=== PATIENT | female | born 1995 | race Caucasian/White ===

== ENCOUNTER 2016-11-08 09:01 | Emergency (ER) | payer BC, MEDICAID ==
[~2016-11-08] VITALS: Ht 162.6 cm; Wt 74.0 kg
[2016-11-08] MEDS ORDERED: MEPERIDINE 50 MG/ML (DEMEROL) SYRINGE IV ONE (09:50)
[2016-11-08] MEDS ORDERED: ONDANSETRON 2 MG/ML (Z0FRAN) 2 ML VIAL IV ONE (09:50)
[2016-11-08] MEDS ORDERED: NS IV 500 ML 500 ML IV SCH (09:50)
[2016-11-08 09:57] LABS: BASOPHILS % (AUTO) 0 % (0-2); EOSINOPHILS # (AUTO) 0.1 10^3uL; EOSINOPHILS % (AUTO) 1 % (0-4); LYMPHOCYTES # (AUTO) 2.1 X10^3; MEAN CORPUSCULAR HEMOGLOBIN 30.8 PG (26.0-34.0); MEAN CORPUSCULAR HGB CONC 34.6 g/dL (31.0-37.0); MEAN CORPUSCULAR VOLUME 89 FL (80-100); MEAN PLATELET VOLUME 10.9 FL (6.0-9.5); MONOCYTES # (AUTO) 0.7 X10^3; MONOCYTES % (AUTO) 7 % (3-11); NEUTROPHILS # (AUTO) 7.6 X10^3; NEUTROPHILS % (AUTO) 72 % (51-67); PLATELET COUNT 207 10^3uL (150-450); WHITE BLOOD COUNT 10.63 10^3uL (4.0-11.0)
[2016-11-08 10:02] LABS: ALBUMIN 3.6 g/dL (3.4-5.0); CALCULATED IONIZED CALCIUM 4.1 mg/dL (3.8-4.6)
[2016-11-08] MEDS ORDERED: MEPERIDINE 25 MG/ML (DEMEROL) SYRINGE IV ONE (11:10)
[2016-11-08 12:45] VITALS: BP 93/50
== END 2016-11-08 12:46 | disposition home or self-care (01) ==
LOC: ED 09:05
DX: K80.50 Calculus of bile duct without cholangitis or cholecystitis without obstruction (principal)
CPT/HCPCS: 36415; 80053; 83690; 85025; 96374; 96375; 96376; 99284; J2175; J2405; J7040; 99283

== ENCOUNTER 2016-11-26 18:40 | Emergency (ER) | payer BC, MEDICAID ==
[~2016-11-26] VITALS: Ht 162.6 cm; Wt 75.9 kg
--- NOTE | 2016-11-26 18:54 | NUR ---
IS 39 WEEKS PREG. DUE TO THIS SHE WENT UP TO OB FOR EVAL. IF CLEARED WILL RETURN TO ER TO SEE
--- NOTE | 2016-11-26 19:21 | NUR ---
RETURNED FROM OB TO BE SEEN BY ED DOCTOR HAS BEEN CLEARED BY OB
[2016-11-26] MEDS ORDERED: ONDANSETRON 2 MG/ML (Z0FRAN) 2 ML VIAL IV ONE (19:45)
[2016-11-26] MEDS ORDERED: HYDROmorphone 1 MG/ML (DILAUDID) SYRINGE IV ONE (19:45)
[2016-11-26] MEDS ORDERED: SODIUM CHLORIDE FLUSH 3 ML SYR IV ONE (20:00)
[2016-11-26 20:02] LABS: BASOPHILS % (AUTO) 0 % (0-2); EOSINOPHILS # (AUTO) 0.2 10^3uL; EOSINOPHILS % (AUTO) 2 % (0-4); LYMPHOCYTES # (AUTO) 1.8 X10^3; MEAN CORPUSCULAR HEMOGLOBIN 30.9 PG (26.0-34.0); MEAN CORPUSCULAR HGB CONC 34.9 g/dL (31.0-37.0); MEAN CORPUSCULAR VOLUME 88 FL (80-100); MONOCYTES # (AUTO) 0.8 X10^3; MONOCYTES % (AUTO) 8 % (3-11); NEUTROPHILS # (AUTO) 7.5 X10^3; NEUTROPHILS % (AUTO) 72 % (51-67); PLATELET COUNT 197 10^3uL (150-450); WHITE BLOOD COUNT 10.45 10^3uL (4.0-11.0)
[2016-11-26 20:08] LABS: ALBUMIN 3.5 g/dL (3.4-5.0); ANION GAP 14.3 MEQ/L (3-15); TOTAL PROTEIN 6.7 g/dL (6.4-8.5)
[2016-11-26] MEDS: SODIUM CHLORIDE FLUSH 10 ML SYR IV PRN ×2 (20:12→20:15)
[2016-11-26 21:33] VITALS: BP 87/62
== END 2016-11-26 22:02 | disposition home or self-care (01) ==
LOC: ED 19:25
DX: O26.613 Liver and biliary tract disorders in pregnancy, third trimester (principal)
CPT/HCPCS: 36415; 80053; 83690; 85025; 96361; 96374; 96375; 99201; 99283; J1170; J2405; J7030; 99282

== ENCOUNTER 2016-12-01 05:35 | Inpatient (IN) | payer BC, MEDICAID ==
[2016-12-01] VITALS (27 sets, daily range): BP systolic 101–130; BP diastolic 57–78
[~2016-12-01] VITALS: Ht 162.6 cm; Wt 75.9 kg
[2016-12-01] MEDS ORDERED: CALCIUM CARBONATE CHEWABLE 300 MG (TUMS) TABLET PO PRN (05:45)
[2016-12-01] MEDS ORDERED: MISOPROSTOL 25 MCG (CYTOTEC) TABLET PV SCH (05:45)
[2016-12-01] MEDS ORDERED: SODIUM CHLORIDE FLUSH 10 ML SYR IV PRN (05:45)
[2016-12-01 06:15] LABS: MEAN CORPUSCULAR HEMOGLOBIN 30.8 PG (26.0-34.0); MEAN CORPUSCULAR HGB CONC 35.2 g/dL (31.0-37.0); MEAN PLATELET VOLUME 11.1 FL (6.0-9.5); WHITE BLOOD COUNT 9.04 10^3uL (4.0-11.0)
[2016-12-01] MEDS ORDERED: MISOPROSTOL 50 MCG PV ONE (09:40)
[2016-12-01] MEDS ORDERED: ROPIVACAINE 1% 10 MG/ML (NAROPIN) 20 ML AMPUL ONE (14:21)
[2016-12-01 15:43] LABS: BILIRUBIN,URINE Negative (Negative); CLARITY,URINE Clear; COLOR,URINE Yellow; GLUCOSE, URINE (UA) Negative (Negative); LEUKOCYTE ESTERASE ,URINE Negative (Negative); UROBILINOGEN,URINE 0.2 mg/dL (0.2-1.0)
[2016-12-01 15:59] LABS: URINE CENTRIFUGED VOLUME 12 mL
[2016-12-01] MEDS: OXYTOCIN INJ 20 UNIT in NS 1000ml 1,000 ML IV PRN (20:11)
[2016-12-02] VITALS (11 sets, daily range): BP systolic 105–131; BP diastolic 50–71
[2016-12-02] MEDS ORDERED: LANOLIN OINTMENT 28 GM TUBE TOP PRN (01:10)
[2016-12-02] MEDS ORDERED: oxyCODONE/ACETAMINOPHEN 5MG-325 MG (PERCOCET) TABLET PO PRN (01:10)
[2016-12-02 02:18] LABS: MEAN CORPUSCULAR HGB CONC 34.8 g/dL (31.0-37.0); MEAN CORPUSCULAR VOLUME 89 FL (80-100); PLATELET COUNT 187 10^3uL (150-450)
[2016-12-02 02:26] LABS: BAND NEUTROPHILS % 11 % (0-6); EOSINOPHILS % 1 % (0-4); LYMPHOCYTES # 0.8 #; MONOCYTES # 1.2 #; MONOCYTES % 6 % (3-11); RBC MORPH NORMAL (NORMAL); SEGMENTED NEUTROPHILS % 78 % (51-67); TOTAL CELLS COUNTED 100
[2016-12-02] MEDS: OXYTOCIN INJ 20 UNIT in NS 1000ml 1,000 ML IV PRN (02:36)
[2016-12-02 03:27] LABS: INFLUENZA VIRUS TYPE A ANTIBOD Negative (NEGATIVE); INFLUENZA VIRUS TYPE B ANTIBOD Negative (NEGATIVE)
[2016-12-02] MEDS ORDERED: ACETAMINOPHEN 500 MG TAB (TYLENOL) PO PRN (03:35)
[2016-12-02] MEDS ORDERED: AMOXICILLIN/CLAVULANATE 875MG-125MG (AUGMENTIN) TABLET PO SCH (03:35)
[2016-12-02] MEDS: DOCUSATE SODIUM 100 MG (COLACE) CAP PO SCH ×3 (04:09→21:00)
[2016-12-02] MEDS ORDERED: METHYLERGONOVINE 0.2 MG/ML (METHERGINE) AMP IM ONE (06:20)
[2016-12-02] MEDS: NAPROXEN 250 MG (NAPROSYN) TABLET PO PRN (08:17)
--- NOTE | 2016-12-02 10:02 | NUR ---
0800-Ruth Jones'juan. Pericare completed. Pt was incontinent of small loose BM. Transferred pt to post room 224 via wheelchair. Pt tolerated fair. Pt rates pain a "6". 0815-Anaprox 2 tabs PO given for pain. Breakfast tray given, pt takes bites but states she isn't very hungry. 0845-Pt requests to sleep, lights turned off. 0920-Vitals taken. Assessment completed. Pt rates pain a "2" now. 1000-Pt's call light goes off, pt states "I had an accident". Pt incontinent of moderate amt loose stool. Pt assisted to bathroom. Linens changed and pericare completed. Ice pack applied. Pt states pain remains a "2-3". Assisted back to bed. Pt remains sleepy. at bedside.
[2016-12-02] MEDS: AMOXICILLIN/CLAVULANATE 875MG-125MG (AUGMENTIN) TABLET PO SCH (12:00)
[2016-12-03] MEDS: AMOXICILLIN/CLAVULANATE 875MG-125MG (AUGMENTIN) TABLET PO SCH ×2 (00:10→10:38)
[2016-12-03 06:29] LABS: MEAN CORPUSCULAR HEMOGLOBIN 30.6 PG (26.0-34.0); MEAN CORPUSCULAR HGB CONC 34.4 g/dL (31.0-37.0); MEAN CORPUSCULAR VOLUME 89 FL (80-100); MEAN PLATELET VOLUME 10.6 FL (6.0-9.5); PLATELET COUNT 176 10^3uL (150-450)
[2016-12-03 07:35] LABS: ANISOCYTOSIS SLIGHT; BAND NEUTROPHILS % 0 % (0-6); EOSINOPHILS % 0 % (0-4); LYMPHOCYTES # 2.6 #; MONOCYTES # 0.4 #; MONOCYTES % 3 % (3-11); RBC MORPH SEE REFERENCE (NORMAL); SEGMENTED NEUTROPHILS % 78 % (51-67); TOTAL CELLS COUNTED 100
[2016-12-03] MEDS: DOCUSATE SODIUM 100 MG (COLACE) CAP PO SCH (09:00)
[2016-12-03 10:30] VITALS: BP 108/64
[2016-12-03] MEDS: NAPROXEN 250 MG (NAPROSYN) TABLET PO PRN (10:38)
--- NOTE | 2016-12-03 14:05 | NUR ---
pt discharged in good condition. Discharge teaching/instructions reviewed with patient, who denies questions at this time. Advised her to call any time in the future should she have questions. Her is not discharged at this time, so Jaida will stay with .
== END 2016-12-03 16:05 | disposition home or self-care (01) | DRG 774 ==
LOC: OB 05:35 → UNDOADMOB 05:35 → UNDOADMIN 05:35 → OBSVTOIN 05:35 → INTOOBSV 05:35 → EDSTATUS 09:10 → OB 12-02 12:37 → UNDODISIN 12-03 16:05
PROVIDERS: ADMIT Family Medicine; ATTEND Family Medicine
PROC: 3E0P7GC Introduction of Other Therapeutic Substance into Female Reproductive, Via Natural or Artificial Opening (ICD-10-PCS; principal; 2016-12-01)
PROC: 10D07Z6 Extraction of Products of Conception, Vacuum, Via Natural or Artificial Opening (ICD-10-PCS; 2016-12-01)
PROC: 0DQR0ZZ Repair Anal Sphincter, Open Approach (ICD-10-PCS; 2016-12-01)
DX: O26.613 Liver and biliary tract disorders in pregnancy, third trimester (principal); O72.1 Other immediate postpartum hemorrhage; O70.20 Third degree perineal laceration during delivery, unspecified; O86.4 Pyrexia of unknown origin following delivery; K80.70 Calculus of gallbladder and bile duct without cholecystitis without obstruction; O99.013 Anemia complicating pregnancy, third trimester; D64.9 Anemia, unspecified; Z3A.39 39 weeks gestation of pregnancy; O26.86 Pruritic urticarial papules and plaques of pregnancy (PUPPP); O75.81 Maternal exhaustion complicating labor and delivery; O66.0 Obstructed labor due to shoulder dystocia; Z37.0 Single live birth
CPT/HCPCS: 36415; 81003; 81015; 85007; 85025; 85027; 86850; 86900; 86901; 87502

== ENCOUNTER 2016-12-09 10:18 | Emergency (ER) | payer BC, MEDICAID ==
[~2016-12-09] VITALS: Ht 162.6 cm; Wt 63.7 kg
[2016-12-09] MEDS ORDERED: ONDANSETRON 2 MG/ML (Z0FRAN) 2 ML VIAL IV ONE ×2 (10:30→12:00)
[2016-12-09] MEDS ORDERED: KETOROLAC 30 MG/ML (TORADOL) 1 ML VIAL IV ONE (10:30)
[2016-12-09] MEDS ORDERED: SODIUM CHLORIDE FLUSH 10 ML SYR IV PRN (10:30)
[2016-12-09 10:53] LABS: BASOPHILS % (AUTO) 0 % (0-2); EOSINOPHILS # (AUTO) 0.1 10^3uL; EOSINOPHILS % (AUTO) 1 % (0-4); LYMPHOCYTES # (AUTO) 1.6 X10^3; MEAN CORPUSCULAR HEMOGLOBIN 30.3 PG (26.0-34.0); MEAN CORPUSCULAR HGB CONC 34.4 g/dL (31.0-37.0); MEAN CORPUSCULAR VOLUME 88 FL (80-100); MEAN PLATELET VOLUME 9.3 FL (6.0-9.5); MONOCYTES # (AUTO) 0.6 X10^3; MONOCYTES % (AUTO) 6 % (3-11); NEUTROPHILS # (AUTO) 8.8 X10^3; NEUTROPHILS % (AUTO) 78 % (51-67); PLATELET COUNT 410 10^3uL (150-450); WHITE BLOOD COUNT 11.15 10^3uL (4.0-11.0)
[2016-12-09 10:59] LABS: BILIRUBIN,URINE Negative (Negative); GLUCOSE, URINE (UA) Negative (Negative); LEUKOCYTE ESTERASE ,URINE Negative (Negative); PH,URINE 5.5 (5.0 - 8.0)
[2016-12-09 11:06] LABS: CLARITY,URINE Slightly Cloudy; COLOR,URINE Dark Yellow
[2016-12-09 11:07] LABS: RBC,URINE 20-50 /HPF; URINE CENTRIFUGED VOLUME 12 mL
[2016-12-09 11:10] LABS: ANION GAP 14.1 MEQ/L (3-15); CALCULATED IONIZED CALCIUM 3.9 mg/dL (3.8-4.6); TOTAL PROTEIN 7.4 g/dL (6.4-8.5)
[2016-12-09] MEDS: SODIUM CHLORIDE FLUSH 3 ML SYR IV PRN ×3 (11:28→12:21)
[2016-12-09] MEDS ORDERED: HYDROmorphone 1 MG/ML (DILAUDID) SYRINGE IV ONE ×2 (12:00→13:15)
--- NOTE | 2016-12-09 13:39 | NUR ---
DR. NAVARRO ANSWERS PT'S QUESTIONS ON R/T TO PT HAVING HAD NARCOTICS TODAY. CRACKERS AND WATER PROVIDED TO PATIENT PER DR. NAVARRO'S DIRECTIONS.
[2016-12-09 18:46] VITALS: BP 123/76
== END 2016-12-09 14:41 | disposition home or self-care (01) ==
LOC: ED 10:19
DX: K80.50 Calculus of bile duct without cholangitis or cholecystitis without obstruction (principal)
CPT/HCPCS: 36415; 74022; 80053; 81003; 81015; 82150; 83690; 85025; 86140; 96361; 96374; 96375; 96376; 99284; J1170; J1885; J2405; J7030; 99283

== ENCOUNTER 2016-12-22 06:35 | Emergency (ER) | payer BC, MEDICAID ==
[~2016-12-22] VITALS: Ht 162.6 cm; Wt 62.3 kg
--- NOTE | 2016-12-22 06:52 | NUR ---
REPORT GIVEN TO Jay VILLA AND SHE ACCEPTED CARE OF PT
[2016-12-22] MEDS ORDERED: ONDANSETRON 2 MG/ML (Z0FRAN) 2 ML VIAL IV ONE (07:05)
[2016-12-22] MEDS ORDERED: HYDROmorphone 1 MG/ML (DILAUDID) SYRINGE IV ONE ×2 (07:05→08:30)
[2016-12-22 07:17] LABS: BASOPHILS % (AUTO) 0 % (0-2); EOSINOPHILS # (AUTO) 0.1 10^3uL; EOSINOPHILS % (AUTO) 2 % (0-4); MEAN CORPUSCULAR HEMOGLOBIN 28.9 PG (26.0-34.0); MEAN CORPUSCULAR HGB CONC 33.4 g/dL (31.0-37.0); MEAN CORPUSCULAR VOLUME 87 FL (80-100); MEAN PLATELET VOLUME 9.9 FL (6.0-9.5); MONOCYTES # (AUTO) 0.5 X10^3; MONOCYTES % (AUTO) 6 % (3-11); NEUTROPHILS # (AUTO) 5.4 X10^3; NEUTROPHILS % (AUTO) 67 % (51-67); PLATELET COUNT 343 10^3uL (150-450); WHITE BLOOD COUNT 8.05 10^3uL (4.0-11.0)
[2016-12-22 07:28] LABS: ALBUMIN 4.1 g/dL (3.4-5.0); ANION GAP 17.5 MEQ/L (3-15); CALCULATED IONIZED CALCIUM 3.9 mg/dL (3.8-4.6); TOTAL PROTEIN 7.4 g/dL (6.4-8.5)
[2016-12-22 08:19] LABS: BILIRUBIN,URINE Negative (Negative); CLARITY,URINE Clear; COLOR,URINE Yellow; GLUCOSE, URINE (UA) Negative (Negative); LEUKOCYTE ESTERASE ,URINE Trace (Negative); PH,URINE 6.5 (5.0 - 8.0); UROBILINOGEN,URINE 0.2 mg/dL (0.2-1.0)
[2016-12-22 08:21] LABS: HCG,QUALITATIVE URINE Negative (Negative)
[2016-12-22 08:25] LABS: URINE CENTRIFUGED VOLUME 12 mL
[2016-12-22] MEDS ORDERED: LORazepam 2 MG/ML (ATIVAN) 1 ML VIAL IV ONE (08:30)
--- NOTE | 2016-12-22 08:57 | NUR ---
Patient is resting quietly with eyes closed.
--- NOTE | 2016-12-22 09:35 | NUR ---
Patient awakened to assess pain level. Reports pain is a 6/10.
[2016-12-22 18:57] VITALS: BP 124/99
== END 2016-12-22 12:23 | disposition home or self-care (01) ==
LOC: EDUNIT# 06:35 → ED 06:36
DX: K81.9 Cholecystitis, unspecified (principal); Z87.440 Personal history of urinary (tract) infections
CPT/HCPCS: 36415; 80053; 81003; 81015; 81025; 83690; 85025; 87088; 96361; 96374; 96375; 96376; 99283; J1170; J2060; J2405; J7030; 99282

== ENCOUNTER 2016-12-26 08:31 | Day surgery (SDC) | payer BC, MEDICAID ==
[~2016-12-26] VITALS: Ht 162.6 cm; Wt 63.2 kg
[~2016-12-26 08:31] MED LIST: BUPIVACAINE/EPINEPHRINE 0.5%-1:200,000 (MARCAINE) 30 ML VIAL INJ ONE; LACTATED RINGERS 1,000 ML IV SCH; SODIUM CHLORIDE FLUSH 3 ML SYR IV PRN
[2016-12-26 08:52] VITALS: BP 132/67
[2016-12-26] MEDS ORDERED: MIDAZOLAM 2 MG/2 ML (VERSED) VIAL ONE (09:50)
[2016-12-26] MEDS ORDERED: ALFENTANIL 500 MCG/ML (ALFENTA) 5 ML AMP IV ONE (09:50)
[2016-12-26] MEDS ORDERED: PROPOFOL 20 ML IV ONE (09:51)
[2016-12-26] MEDS ORDERED: SUCCINYLCHOLINE 20 MG/ML 10 ML VIAL ONE (10:07)
[2016-12-26] MEDS ORDERED: METOCLOPRAMIDE 10 MG/2 ML (REGLAN) VIAL ONE (10:14)
[2016-12-26] MEDS ORDERED: ONDANSETRON 2 MG/ML (Z0FRAN) 2 ML VIAL ONE (10:14)
[2016-12-26] MEDS ORDERED: diphenhydrAMINE 50 MG/ML INJ (BENADRYL) ONE (10:14)
[2016-12-26] MEDS ORDERED: GLYCOPYRROLATE 0.2 MG/ML (ROBINUL) 1 ML VIAL ONE (10:54)
[2016-12-26] MEDS ORDERED: NEOSTIGMINE 1 MG/ML SYRINGE ONE (10:54)
[2016-12-26 11:58] VITALS: BP 150/68
[2016-12-26 12:17] VITALS: BP 129/77
[2016-12-26] MEDS ORDERED: METOCLOPRAMIDE 10 MG/2 ML (REGLAN) VIAL IV PRN (12:20)
[2016-12-26] MEDS ORDERED: KETOROLAC 30 MG/ML (TORADOL) 1 ML VIAL IV PRN (12:20)
[2016-12-26] MEDS ORDERED: PROMETHAZINE HCL INJ 25 MG in SODIUM CHLORIDE 25 ML IV PRN (12:20)
[2016-12-26] MEDS ORDERED: ONDANSETRON 2 MG/ML (Z0FRAN) 2 ML VIAL IV PRN (12:20)
[2016-12-26] MEDS ORDERED: morphine INJ 4 MG/ML 1 ML SYRINGE IV PRN (12:20)
[2016-12-26 12:35] VITALS: BP 131/69
[2016-12-26 12:59] VITALS: BP 154/121
[2016-12-26 13:11] VITALS: BP 129/75
== END 2016-12-26 13:42 | disposition home or self-care (01) ==
LOC: ASC 08:31
PROVIDERS: ATTEND Surgery
DX: O99.63 Diseases of the digestive system complicating the puerperium (principal); K80.10 Calculus of gallbladder with chronic cholecystitis without obstruction
CPT/HCPCS: 47562; J0330; J1200; J2250; J2710; J3490; J7120